=== PATIENT | male | born 1965 | race Caucasian/White ===

== ENCOUNTER 2017-12-22 10:38 | Observation (INO) | payer SELFPAY ==
[~2017-12-22] VITALS: Ht 167.6 cm; Wt 83.1 kg
[2017-12-22] VITALS (20 sets, daily range): BP systolic 136–253; BP diastolic 67–126; PULSE 55–76; RESP 16–24; TEMP 97–97.8; O2SAT 94–99
[2017-12-22] MEDS ORDERED: SODIUM CHLOR 0.9% 1000 ML INJ 1,000 ML IV SCH (10:52)
[2017-12-22] MEDS ORDERED: SODIUM CHLORIDE 0.9% FLUSH 10 ML FLUSH IV FLUSH PRN (11:00)
[2017-12-22] MEDS ORDERED: MORPHINE SULFATE 8 MG/ML INJ IV PUSH ONE ×2 (11:00→13:15)
[2017-12-22 11:18] LABS: BASOPHIL # 0.3 TH/MM3 (0-0.2); EOSINOPHIL # 0.1 TH/MM3 (0-0.4); EOSINOPHIL % 0.8 % (0.0-4.0); HEMATOCRIT 50.9 % (39.0-51.0); HEMOGLOBIN 17.8 GM/DL (13.0-17.0); LYMPH % 17.1 % (9.0-44.0); LYMPHOCYTE # 2.6 TH/MM3 (1.0-4.8); MEAN CORPUSCULAR HEMOGLOBIN 29.8 PG (27.0-34.0); MEAN PLATELET VOLUME 9.1 FL (7.0-11.0); MONOCYTE # 1.1 TH/MM3 (0-0.9); NEUT % 73.1 % (16.0-70.0); PLATELET COUNT 307 TH/MM3 (150-450); RED BLOOD COUNT 5.99 MIL/MM3 (4.50-5.90); RED CELL DISTRIBUTION WIDTH 13.9 % (11.6-17.2); WHITE BLOOD COUNT 15.1 TH/MM3 (4.0-11.0)
--- NOTE | 2017-12-22 11:19 | PD ---
HPI Chief Complaint: Abdominal Pain Time Seen by Provider: 10:52 Travel History International Travel<30 days: No Contact w/Intl Traveler<30days: No Traveled to known affect area: No History of Present Illness HPI 52-year-old male complains of generalized abdominal pain for one day. No nausea vomiting fever or diarrhea. Denies any unusual food. The pain is constant. It's worse with palpation. He reports feels similar to prior episode of diverticulitis. [facility] Social History Tobacco Use: No Allergies-Medications (Allergen,Severity, Reaction): Coded Allergies: No Known Allergies (Unverified , 12/22/17) Reported Meds & Prescriptions Reported Meds & Active Scripts Active Review of Systems Except as stated in HPI: all other systems reviewed are Neg General / Constitutional: No: Fever Physical Exam Narrative GENERAL: 52-year-old male well-nourished well-developed Vital Signs Date Time Temp Pulse Resp B/P (MAP) Pulse Ox O2 Delivery O2 Flow Rate FiO2 12/22/17 10:41 97.6 63 16 253/126 (168) 99 SKIN: Warm and dry. HEAD: Atraumatic. Normocephalic. EYES: Pupils equal and round. No scleral icterus. No injection or drainage. ENT: No nasal bleeding or discharge. Mucous membranes pink and moist. NECK: Trachea midline. No JVD. CARDIOVASCULAR: Regular rate and rhythm. RESPIRATORY: No accessory muscle use. Clear to auscultation. Breath sounds equal bilaterally. GASTROINTESTINAL: Soft. Generalized tenderness present. MUSCULOSKELETAL: Extremities without clubbing, cyanosis, or edema. No obvious deformities. NEUROLOGICAL: Awake and alert. No obvious cranial nerve deficits. Motor grossly within normal limits. Five out of 5 muscle strength in the arms and legs. Normal speech. PSYCHIATRIC: Appropriate mood and affect; insight and judgment normal. Data Data Last Documented VS Vital Signs Date Time Temp Pulse Resp B/P (MAP) Pulse Ox O2 Delivery O2 Flow Rate FiO2 12/22/17 14:40 62 16 203/85 (124) 98 Room Air 12/22/17 10:41 97.6 Orders Orders Complete Blood Count With Diff (12/22/17 10:52) Comprehensive Metabolic Panel (12/22/17 10:52) Lipase (12/22/17 10:52) Ct Abd/Pel W Iv Contrast(Rout) (12/22/17 10:52) Iv Access Insert/Monitor (12/22/17 10:52) Ecg Monitoring (12/22/17 10:52) Oximetry (12/22/17 10:52) Sodium Chlor 0.9% 1000 Ml Inj (Ns 1000 M (12/22/17 10:52) Sodium Chloride 0.9% Flush (Ns Flush) (12/22/17 11:00) Morphine Inj (Morphine Inj) (12/22/17 11:00) Iohexol 350 Inj (Omnipaque 350 Inj) (12/22/17 11:29) Enalaprilat Inj (Vasotec Inj) (12/22/17 12:00) Ciprofloxacin (Cipro) (12/22/17 12:15) Metronidazole (Flagyl) (12/22/17 12:15) Promethazine Inj (Phenergan Inj) (12/22/17 12:30) Morphine Inj (Morphine Inj) (12/22/17 13:15) Clonidine (Catapres) (12/22/17 13:15) Hydralazine Inj (Apresoline Inj) (12/22/17 14:30) Nicardipine Inj (Cardene Inj) (12/22/17 14:45) Admit To Inpatient (12/22/17 ) Vital Signs (Adult) NIKO.Q4H (12/22/17 14:40) Glass Loading Equipment Tender / Telemetry NIKO.Q8H (12/22/17 14:40) Inpatient Certification (12/22/17 ) Complete Blood Count With Diff (12/23/17 06:00) Admit Order (Ed Use Only) (12/22/17 ) Glass Loading Equipment Tender / Telemetry NIKO.Q8H (12/22/17 14:43) Vital Signs (Adult) Q4H (12/22/17 14:43) Diet Heart Healthy (12/22/17 Dinner) Activity Bed Rest (12/22/17 14:43) Labs Laboratory Tests Test 12/22/17 11:00 White Blood Count 15.1 TH/MM3 Red Blood Count 5.99 MIL/MM3 Hemoglobin 17.8 GM/DL Hematocrit 50.9 % Mean Corpuscular Volume 85.0 FL Mean Corpuscular Hemoglobin 29.8 PG Mean Corpuscular Hemoglobin Concent 35.0 % Red Cell Distribution Width 13.9 % Platelet Count 307 TH/MM3 Mean Platelet Volume 9.1 FL Neutrophils (%) (Auto) 73.1 % Lymphocytes (%) (Auto) 17.1 % Monocytes (%) (Auto) 7.0 % Eosinophils (%) (Auto) 0.8 % Basophils (%) (Auto) 2.0 % Neutrophils # (Auto) 11.0 TH/MM3 Lymphocytes # (Auto) 2.6 TH/MM3 Monocytes # (Auto) 1.1 TH/MM3 Eosinophils # (Auto) 0.1 TH/MM3 Basophils # (Auto) 0.3 TH/MM3 CBC Comment DIFF FINAL Differential Comment Blood Urea Nitrogen 10 MG/DL Creatinine 1.00 MG/DL Random Glucose 153 MG/DL Total Protein 7.9 GM/DL Albumin 3.5 GM/DL Calcium Level 8.9 MG/DL Alkaline Phosphatase 90 U/L Aspartate Amino Transf (AST/SGOT) 24 U/L Alanine Aminotransferase (ALT/SGPT) 14 U/L Total Bilirubin 0.3 MG/DL Sodium Level 140 MEQ/L Potassium Level 4.6 MEQ/L Chloride Level 108 MEQ/L Carbon Dioxide Level 26.7 MEQ/L Anion Gap 5 MEQ/L Estimat Glomerular Filtration Rate 78 ML/MIN Lipase 170 U/L MDM Medical Decision Making Medical Screen Exam Complete: Yes Emergency Medical Condition: Yes Medical Record Reviewed: Yes Differential Diagnosis Gastritis, pancreatitis, appendicitis, acute cholecystitis, ascending cholangitis, AAA, perforated viscous, mesenteric ischemia, hepatitis, cystitis, hydronephrosis/hydroureter/nephroureter calculus, mesenteric adenitis, biliary colic Narrative Course CBC & BMP Diagram 12/22/17 11:00 Total Protein 7.9, Albumin 3.5, Calcium Level 8.9, Alkaline Phosphatase 90, Aspartate Amino Transf (AST/SGOT) 24, Alanine Aminotransferase (ALT/SGPT) 14, Total Bilirubin 0.3 CT abdomen and pelvis reveals trace stranding about the sigmoid colon. The presentation is in keeping with a clinical diagnosis of diverticulitis. Cipro Flagyl prescriptions. Tramadol for pain The patient had pretty significant hypertension at 250 systolic. After morphine it decreased to 223 systolic. Vasotec IV ordered. Patient reassessed at about 12:15 AM he complained of the need to urinate. Upon return from the bathroom he was very nauseated and dry heaved. Phenergan ordered. The patient was standing at that point. We'll reassess in about 30 minutes. Persistent hypertension observed. Persistent pain reported. 8 mg morphine added. Clonidine added. Patient reassessed again at 1:40 PM and reports resolution of pain. If blood pressure improves the patient will go home which is also in keeping with his preference. Unfortunately the blood pressure does not drop below 2:15. 10 mg IV hydralazine added. The patient will be admitted for treatment of abdominal infection, presumably the etiology, coupled with hypertensive emergency. Critical Care Narrative Aggregate critical care time was 45 minutes. Time to perform other separately billable procedures was not included in the critical care time. My time did not include minutes spent treating any other patients simultaneously or on activities that did not directly contribute to the patient's treatment. The services I provided to this patient were to treat and/or prevent clinically significant deterioration that could result in: Multiorgan injury due to hypertension I provided critical care services requiring my management, as noted below: Chart data review, documentation time, medication orders and management, vital sign assessments/reviewing monitor data, ordering and reviewing lab tests, ordering and interpreting/reviewing x-rays and diagnostic studies, care of the patient and discussion of the patient with the admitting physicians. Diagnosis Primary Impression: Diverticulitis Additional Impressions: Hypertension Qualified Codes: I10 - Essential (primary) hypertension Nausea & vomiting Qualified Codes: R11.2 - Nausea with vomiting, unspecified Admitting Information Admitting Physician Requests: Percy Glasgow MD Dec 22, 2017 11:19
[2017-12-22 11:25] LABS: CHLORIDE 108 MEQ/L (98-107); SODIUM (NA) 140 MEQ/L (136-145)
[2017-12-22 11:29] LABS: ALBUMIN 3.5 GM/DL (3.4-5.0); BICARBONATE 26.7 MEQ/L (21.0-32.0); CALCIUM 8.9 MG/DL (8.5-10.1); GLUCOSE,RANDOM 153 MG/DL (74-106)
[2017-12-22] MEDS ORDERED: IOHEXOL 350 MG/ML 10 ML VIAL (for RAD DIAG) IVCONTRAST ONE (11:29)
[2017-12-22 11:30] LABS: BLOOD UREA NITROGEN 10 MG/DL (7-18)
[2017-12-22 11:32] LABS: ALT (GPT) 14 U/L (12-78); AST (GOT) 24 U/L (15-37); GLOMERULAR FILTRATION RATE 78 ML/MIN (>89)
[2017-12-22 11:34] LABS: TOTAL BILIRUBIN ADULT 0.3 MG/DL (0.2-1.0); TOTAL PROTEIN 7.9 GM/DL (6.4-8.2)
[2017-12-22 11:35] LABS: ALKALINE PHOSPHATASE 90 U/L (45-117)
--- NOTE | 2017-12-22 11:46 | RADRPT ---
EXAM DATE/TIME: 12/22/2017 11:23 [facility] COMPARISON: No previous studies available for comparison. INDICATIONS : Mid to lower abdominal pain since last night. IV CONTRAST: 95 cc Omnipaque 350 (iohexol) IV ORAL CONTRAST: No oral contrast ingested. RADIATION DOSE: 13.75 CTDIvol (mGy) MEDICAL HISTORY : Diverticulitis. SURGICAL HISTORY : None. ENCOUNTER: Initial ACUITY: 2 days PAIN SCALE: 6/10 LOCATION: pelvis abdomen TECHNIQUE: Volumetric scanning of the abdomen and pelvis was performed. Using automated exposure control and ad justment of the mA and/or kV according to patient size, radiation dose was kept as low as reasonably achievable to obtain optimal diagnostic quality images. DICOM format image data is available electro nically for review and comparison. FINDINGS: Lung bases are clear. The osseous structures are intact. No pleural or pericardial effusions are iden tified. Liver unremarkable. Cholelithiasis is noted. The spleen, pancreas, adrenals and left kidney a re unremarkable. There is a circumscribed simple cyst at the midpole of the right kidney measuring 5. 9 x 5.7 cm. Atherosclerotic plaquing of the aorta without aneurysm. Prostatic calcifications are note d. Urinary bladder unremarkable. There is diverticulosis of the sigmoid colon and the descending colo n without evidence of diverticulitis. The appendix is normal. There is no evidence for adenopathy or aneurysm. CONCLUSION: Right renal cyst. Atherosclerosis. Darrick Minaya MD on December 22, 2017 at 11:42 Board Certified Radiologist. This report was verified electronically.
[2017-12-22] MEDS ORDERED: ENALAPRILAT 1.25 MG/ML VIAL IV PUSH ONE (12:00)
[2017-12-22] MEDS ORDERED: METR-1 PO (12:04)
[2017-12-22] MEDS ORDERED: TRAM50TA PO (12:04)
[2017-12-22] MEDS ORDERED: CIPR-9 PO (12:04)
[2017-12-22] MEDS ORDERED: metroNIDAZOLE 500 MG TAB PO ONE (12:15)
[2017-12-22] MEDS ORDERED: CIPROFLOXACIN 500 MG TAB PO ONE (12:15)
[2017-12-22] MEDS ORDERED: PROMETHAZINE INJ 25 MG/ML VIAL IM ONE (12:30)
[2017-12-22] MEDS ORDERED: cloNIDine HCL 0.1 MG TAB PO ONE (13:15)
[2017-12-22] MEDS ORDERED: PROM25TA10 PO (13:42)
[2017-12-22] MEDS ORDERED: hydrALAZINE HCL 20 MG/ML VIAL IV PUSH ONE (14:30)
[2017-12-22] MEDS ORDERED: niCARdipine INJ 25 MG in SODIUM CHLOR 0.9% 250 ML INJ 240 ML IV ONE (14:45)
--- NOTE | 2017-12-22 15:27 | HHI.HP ---
HPI Service [facility] Primary Care Physician No Primary Care Physician Admission Diagnosis Diverticulitis; HTN Diagnoses: Chief Complaint: Abdominal pain Travel History International Travel<30 Days: No Contact w/Intl Traveler <30 Da: No Traveled to Known Affected Are: No History of Present Illness 52-year-old white male admitted for hypertensive urgency and diverticulitis Patient was in his usual state of health until earlier this morning when he began experiencing diffuse abdominal pain. Pain was sharp and at its worst intensity was 10/10. Patient did have some nausea no vomiting, no diarrhea. Denies any fevers or chills. Did not take any medicines to help his pain. No alleviating or exacerbating factors reported. Does not take any daily medicines at home. Emergency department patient had a CT abdomen done which on my independent review shows mild to moderate constipation along with some mild intestinal stranding. Patient's blood pressures were noted to be 250 systolic upon entering. Pressures still remained greater than 200 systolic at the end of ED MD evaluation despite aggressive antihypertensives. White count was noted to be 15 K. 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 EYES: No scleral icterus. No injection or drainage. ENT: No nasal bleeding or discharge. Mucous membranes pink and moist. CARDIOVASCULAR: Regular rate and rhythm. no murmurs RESPIRATORY: No accessory muscle use. Clear to auscultation. Breath sounds equal bilaterally. GASTROINTESTINAL: Abdomen soft, nondistended, diffuse mild to moderate tenderness to palpation Extremities: No clubbing, cyanosis, or edema. No obvious deformities. MUSCULOSKELETAL: adequate muscle bulk and tone for age and habitus NEUROLOGICAL: Awake and alert. No obvious cranial nerve deficits. No facial droop nor slurred speech noted. PSYCHIATRIC: Appropriate mood and affect; insight and judgment normal. Laboratory Laboratory Tests Test 12/22/17 11:00 White Blood Count 15.1 Red Blood Count 5.99 Hemoglobin 17.8 Hematocrit 50.9 Mean Corpuscular Volume 85.0 Mean Corpuscular Hemoglobin 29.8 Mean Corpuscular Hemoglobin Concent 35.0 Red Cell Distribution Width 13.9 Platelet Count 307 Mean Platelet Volume 9.1 Neutrophils (%) (Auto) 73.1 Lymphocytes (%) (Auto) 17.1 Monocytes (%) (Auto) 7.0 Eosinophils (%) (Auto) 0.8 Basophils (%) (Auto) 2.0 Neutrophils # (Auto) 11.0 Lymphocytes # (Auto) 2.6 Monocytes # (Auto) 1.1 Eosinophils # (Auto) 0.1 Basophils # (Auto) 0.3 CBC Comment DIFF FINAL Differential Comment Blood Urea Nitrogen 10 Creatinine 1.00 Random Glucose 153 Total Protein 7.9 Albumin 3.5 Calcium Level 8.9 Alkaline Phosphatase 90 Aspartate Amino Transf (AST/SGOT) 24 Alanine Aminotransferase (ALT/SGPT) 14 Total Bilirubin 0.3 Sodium Level 140 Potassium Level 4.6 Chloride Level 108 Carbon Dioxide Level 26.7 Anion Gap 5 Estimat Glomerular Filtration Rate 78 Lipase 170 Result Diagram: 12/22/17 1100 12/22/17 1100 Imaging Last Impressions Abdomen/Pelvis CT 12/22/17 1052 Signed Impressions: Service Date/Time: Friday, December 22, 2017 11:23 - CONCLUSION: Right renal cyst. Atherosclerosis. MD Jonny Fuller VTE Risk Assessment Caprini VTE Risk Assessment: No/Low Risk (score <= 1) Caprini Risk Assessment Model Point Value = 1 Point Value = 2 Point Value = 3 Point Value = 5 Age 41-60 Minor surgery BMI > 25 kg/m2 Swollen legs Varicose veins or History of unexplained or recurrent spontaneous Oral contraceptives or hormone replacement Sepsis (< 1 month) Serious lung disease, including pneumonia (< 1 month) Abnormal pulmonary function Acute myocardial infarction Congestive heart failure (< 1 month) History of inflammatory bowel disease Medical patient at bed rest Age 61-74 Arthroscopic surgery Major open surgery (> 45 min) Laparoscopic surgery (> 45 min) Malignancy Confined to bed (> 72 hours) Immobilizing plaster cast Central venous access Age >= 75 History of VTE Family history of VTE Factor V Leiden Prothrombin [id number] Lupus anticoagulant Anticardiolipin antibodies Elevated serum homocysteine Heparin-induced thrombocytopenia Other congenital or acquired thrombophilia Stroke (< 1 month) Elective arthroplasty Hip, pelvis, or leg fracture Acute spinal cord injury (< 1 month) Prophylaxis Regimen Total Risk Factor Score Risk Level Prophylaxis Regimen 0-1 Low Early ambulation 2 Moderate Order ONE of the following: *Sequential Compression Device (SCD) *Heparin 5000 units SQ BID 3-4 Higher Order ONE of the following medications: *Heparin 5000 units SQ TID *Enoxaparin/Lovenox 40 mg SQ daily (WT < 150 kg, CrCl > 30 mL/min) *Enoxaparin/Lovenox 30 mg SQ daily (WT < 150 kg, CrCl > 10-29 mL/min) *Enoxaparin/Lovenox 30 mg SQ BID (WT < 150 kg, CrCl > 30 mL/min) AND/OR *Sequential Compression Device (SCD) 5 or more Highest Order ONE of the following medications: *Heparin 5000 units SQ TID (Preferred with Epidurals) *Enoxaparin/Lovenox 40 mg SQ daily (WT < 150 kg, CrCl > 30 mL/min) *Enoxaparin/Lovenox 30 mg SQ daily (WT < 150 kg, CrCl > 10-29 mL/min) *Enoxaparin/Lovenox 30 mg SQ BID (WT < 150 kg, CrCl > 30 mL/min) AND *Sequential Compression Device (SCD) Assessment and Plan Assessment and Plan 52-year-old white male being admitted for hypertensive urgency and diverticulitis Hypertensive urgency -Requiring multiple aggressive antihypertensives, starting nicardipine drip, will start oral lisinopril, holding off on beta-blockers secondary to borderline low heart rate Diverticulitis -Continue Cipro and Flagyl -Clear liquid diet -MiraLAX ETOH use - ciwa w/ librium taper Right renal simple cyst -Monitor, should secure outpatient urology/nephrology follow-up SCDs Physician Certification 2 Midnight Certification Type: Admission for Inpatient Services Order for Inpatient Services The services are ordered in accordance with Medicare regulations or non- Medicare payer requirements, as applicable. In the case of services not specified as inpatient-only, they are appropriately provided as inpatient services in accordance with the 2-midnight benchmark. Estimated LOS (days): 2 2 days is the estimated time the patient will need to remain in the hospital, assuming treatment plan goals are met and no additional complications. Post-Hospital Plan: Home Jose Curiel MD Dec 22, 2017 15:27
[2017-12-22] MEDS ORDERED: LISINOPRIL 5 MG TAB PO ONE (15:30)
[2017-12-22] MEDS ORDERED: LORazepam 2 MG/ML VIAL IV PUSH PRN ×4 (15:45)
[2017-12-22] MEDS ORDERED: FLUMAZENIL 0.5 MG/5 ML VIAL IV PUSH PRN (15:45)
[2017-12-22] MEDS ORDERED: LORazepam 2 MG TAB PO PRN (15:45)
[2017-12-22] MEDS ORDERED: LORazepam 1 MG TAB PO PRN (15:45)
[2017-12-22] MEDS ORDERED: POLYETHYLENE GLYCOL 17 GM PKG PO ONE (15:45)
[2017-12-22] MEDS: SODIUM CHLOR 0.9% 1000 ML INJ 1,000 ML IV SCH (18:04)
[2017-12-22] MEDS: metroNIDAZOLE 500 MG INJ 100 ML IV SCH ×2 (18:04→22:53)
[2017-12-22] MEDS: CIPROFLOXACIN 400 MG PREMIX 200 ML IV SCH (21:05)
[2017-12-22] MEDS ORDERED: cloNIDine HCL 0.1 MG TAB PO PRN (22:15)
[2017-12-23] VITALS: BP 140/81; PULSE 60; RESP 20; TEMP 99.4; O2SAT 94
[2017-12-23] MEDS: SODIUM CHLOR 0.9% 1000 ML INJ 1,000 ML IV SCH (03:55)
[2017-12-23 03:58] VITALS: BP 142/80; PULSE 60; RESP 20; TEMP 99.2
[2017-12-23 04:00] VITALS: PULSE 58
[2017-12-23] MEDS: metroNIDAZOLE 500 MG INJ 100 ML IV SCH ×2 (04:16→10:58)
[2017-12-23 04:57] LABS: AUTOMATED NEUTROPHIL # 11.1 TH/MM3 (1.8-7.7); BASOPHIL # 0.1 TH/MM3 (0-0.2); BASOPHIL % 0.5 % (0.0-2.0); EOSINOPHIL # 0.1 TH/MM3 (0-0.4); EOSINOPHIL % 0.9 % (0.0-4.0); HEMATOCRIT 48.6 % (39.0-51.0); HEMOGLOBIN 16.1 GM/DL (13.0-17.0); LYMPHOCYTE # 2.9 TH/MM3 (1.0-4.8); MEAN CORPUSCULAR HEMOGLOBIN 28.2 PG (27.0-34.0); MEAN CORPUSCULAR HGB CONC 33.2 % (32.0-36.0); MEAN PLATELET VOLUME 8.7 FL (7.0-11.0); MONOCYTE # 1.1 TH/MM3 (0-0.9); NEUT % 72.6 % (16.0-70.0); PLATELET COUNT 277 TH/MM3 (150-450); RED BLOOD COUNT 5.71 MIL/MM3 (4.50-5.90); RED CELL DISTRIBUTION WIDTH 12.9 % (11.6-17.2); WHITE BLOOD COUNT 15.3 TH/MM3 (4.0-11.0)
[2017-12-23 08:00] VITALS: PULSE 54
[2017-12-23] MEDS ORDERED: LISINOPRIL 5 MG TAB PO SCH (09:00)
[2017-12-23] MEDS ORDERED: POLYETHYLENE GLYCOL 17 GM PKG PO SCH (09:00)
[2017-12-23] MEDS: CIPROFLOXACIN 400 MG PREMIX 200 ML IV SCH (10:58)
[2017-12-23 11:43] VITALS: BP 147/76; PULSE 56; RESP 16; TEMP 98.7; O2SAT 94
[2017-12-23] MEDS ORDERED: LISI-519 PO (14:14)
[2017-12-23] MEDS ORDERED: CIPR500T2 PO (14:14)
[2017-12-23] MEDS ORDERED: METR1TAB76 PO (14:14)
--- NOTE | 2017-12-23 14:15 | HHI.DCPOC ---
Discharge Care Plan Diagnosis: (1) Diverticulitis (2) Nausea & vomiting (3) Hypertension (4) Hypertensive urgency Goals to Promote Your Health * To prevent worsening of your condition and complications * To maintain your health at the optimal level Directions to Meet Your Goals Take your medications as prescribed Follow your dietary instruction Follow activity as directed Keep your appointments as scheduled Take your immunizations and boosters as scheduled If your symptoms worsen call your PCP, if no PCP go to Urgent Care Center or Emergency Room Smoking is Dangerous to Your Health. Avoid second hand smoke Call the 24-hour hour crisis hotline for domestic abuse at Jose Curiel MD Dec 23, 2017 14:15
--- NOTE | 2017-12-23 14:17 | HHI.PR ---
Subjective Remarks Nursing denies any deterioration since last night. Patient says his pain is much improved. Tolerating p.o. intake well. Afebrile. Objective Vital Signs Date Time Temp Pulse Resp B/P (MAP) Pulse Ox O2 Delivery O2 Flow Rate FiO2 12/23/17 11:43 98.7 56 16 147/76 (99) 94 12/23/17 08:00 54 12/23/17 04:00 58 12/23/17 03:58 99.2 60 20 142/80 (100) 12/23/17 00:00 60 12/23/17 00:00 99.4 60 20 140/81 (100) 94 12/23/17 00:00 60 12/22/17 20:02 97.8 66 23 158/86 (110) 94 12/22/17 20:00 70 12/22/17 20:00 70 12/22/17 19:15 70 12/22/17 19:02 76 12/22/17 18:45 74 12/22/17 18:38 66 12/22/17 18:10 66 22 150/84 (106) 12/22/17 18:05 70 24 136/86 (103) 12/22/17 18:01 97.0 68 22 159/86 (110) 12/22/17 18:00 66 12/22/17 17:38 67 16 154/67 (96) 94 12/22/17 17:11 69 16 145/72 (96) 95 Room Air 12/22/17 16:45 72 16 177/78 (111) 97 Room Air 12/22/17 16:07 60 176/87 12/22/17 15:46 58 16 176/87 (116) 97 Room Air 12/22/17 14:40 62 16 203/85 (124) 98 Room Air 12/22/17 14:21 16 I/O 12/22/17 12/22/17 12/22/17 12/23/17 12/23/17 12/23/17 07:00 15:00 23:00 07:00 15:00 23:00 Intake Total 1000 ml 620 ml 1370 ml Output Total 1000 ml Balance 1000 ml 620 ml 370 ml Intake Oral 320 ml IV Total 1000 ml 300 ml 1370 ml Output Urine Total 1000 ml Result Diagram: 12/23/17 0408 12/22/17 1100 Objective Remarks No abdominal tenderness noted today on palpation, abdomen soft, nondistended A/P Assessment and Plan Diverticulitis -Clinically improved. Will transition patient to p.o. ciprofloxacin and metronidazole upon discharge. Clear liquid diet tonight, patient counseled to gently advance diet as tolerated over the next 2 days. Hypertensive urgency -Patient counseled on the importance of good blood pressure control as outpatient, will be discharged on lisinopril. Patient has met maximal benefit from hospitalization is clinically stable for discharge. Jose Curiel MD Dec 23, 2017 14:17
--- NOTE | 2017-12-23 21:19 | EKG ---
Date Performed: 12/22/2017 Time Performed: 15:46:07 PTAGE: 52 years EKG: SINUS BRADYCARDIA POSSIBLE RIGHT VENTRICULAR CONDUCTION DELAY BORDERLINE ECG NO PREVIOUS TRACING DOCTOR: Shashank Barger Interpretating Date/Time 12/23/2017 21:18:48
== END 2017-12-23 14:44 | disposition home or self-care (01) ==
LOC: PHED 10:38 → PHEDA 17:05 → PHICU 17:52 → PH3B 12-23 10:45
PROVIDERS: ADMIT Hospitalist; ATTEND Hospitalist
DX: I16.1 Hypertensive emergency (principal); K57.92 Diverticulitis of intestine, part unspecified, without perforation or abscess without bleeding; R11.2 Nausea with vomiting, unspecified; I10 Essential (primary) hypertension; N28.1 Cyst of kidney, acquired; K59.00 Constipation, unspecified; R00.1 Bradycardia, unspecified; F17.200 Nicotine dependence, unspecified, uncomplicated
CPT/HCPCS: 74177; 80053; 83690; 85025; 93005; 96361; 96365; 96366; 96368; 96372; 96375; 96376; 99291; G0378; J0360; J0744; J2270; J2550; J7030; J7050; Q9967

== ENCOUNTER 2018-01-02 00:43 | Inpatient (IN) | payer SELFPAY ==
[~2018-01-02] VITALS: Ht 167.6 cm; Wt 86.5 kg
[2018-01-02] VITALS (14 sets, daily range): BP systolic 94–152; BP diastolic 65–82; PULSE 50–138; RESP 14–18; TEMP 98.1–99.9; O2SAT 92–98
[~2018-01-02 00:43] MED LIST: CIPR500T2 PO; LISI-519 PO; METR1TAB76 PO
[2018-01-02] MEDS ORDERED: NITROGLYCERIN 0.4 MG SL 25 TABS/BTL SL ONE ×2 (01:00)
[2018-01-02] MEDS ORDERED: NITROGLYCERIN 2% OINT 1 GM PACKET TOPICAL ONE (01:00)
[2018-01-02] MEDS ORDERED: HEPARIN SODIUM - IV 10,000 UNITS/10 ML VIAL IV ONE ×3 (01:00→01:15)
[2018-01-02] MEDS ORDERED: ASPIRIN 81 MG CHEW TAB CHEW ONE (01:00)
[2018-01-02] MEDS ORDERED: HEPARIN-D5W 25,000 U/250 ML 250 ML IV PRN ×2 (01:00→01:15)
[2018-01-02] MEDS ORDERED: NITROGLYCERIN-D5W 50 MG/250 ML 250 ML ONE (01:01)
--- NOTE | 2018-01-02 01:01 | PD ---
HPI Chief Complaint: STEMI Alert Time Seen by Provider: 00:50 Travel History International Travel<30 days: No Contact w/Intl Traveler<30days: No Traveled to known affect area: No History of Present Illness HPI Patient is a 52-year-old male who is a history of hypertension he recently was in our hospital for uncontrolled hypertension was discharged on meds and his BP was controlled , . he has been home for a 10 days. Tonight sudden onset left-sided chest pain started 2 hours prior to arrival he comes to our ER on his own. He drives to the triage is brought immediately back to the room. His immediate EKG shows an inferior lead STEMI with reciprocal depressions in lateral leads. Patient is immediately prepared for the Communicable Disease Specialist. He describes the pain as constant pressure left chest and up to neck , Nothing alleviates it , He took 81mg ASA no relief of CP , His BP is very elevated again tonight on arrival and I immediately give him 2 SL nitro and 1 inch notro paste to chest and 324 chewable ASA. 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 Pt transferred to [facility] within 30 minutes of arrival to [facility] Past Medical History Diverticulitis: Yes Gastrointestinal Disorders: Yes (DIVERTICULITIS) Tetanus Vaccination: < 5 Years Influenza Vaccination: No Past Surgical History Tonsillectomy: Yes (AND ADENOIDS) Social History Alcohol Use: Yes (daily) Tobacco Use: No Substance Use: No Allergies-Medications (Allergen,Severity, Reaction): Uncoded Allergies: AICD , No MRI (Adverse Reaction, Unknown, 01/03/18) Reported Meds & Prescriptions Reported Meds & Active Scripts Active Review of Systems Except as stated in HPI: all other systems reviewed are Neg Cardiovascular: Positive: Chest Pain or Discomfort Skin: Positive Other (sweaty) Physical Exam Narrative GENERAL: appears concerned and reports 8/10 CP not diaphoretic no vomit. SKIN: Warm and dry. HEAD: Atraumatic. Normocephalic. EYES: Pupils equal and round. No scleral icterus. No injection or drainage. ENT: No nasal bleeding or discharge. Mucous membranes pink and moist. NECK: Trachea midline. No JVD. CARDIOVASCULAR: Regular rate and rhythm. HR 88 and 201 /114 nitro given immediately RESPIRATORY: No accessory muscle use. Clear to auscultation. Breath sounds equal bilaterally. GASTROINTESTINAL: Abdomen soft, non-tender, nondistended. Hepatic and splenic margins not palpable. MUSCULOSKELETAL: Extremities without clubbing, cyanosis, or edema. No obvious deformities. NEUROLOGICAL: Awake and alert. No obvious cranial nerve deficits. Motor grossly within normal limits. Five out of 5 muscle strength in the arms and legs. Normal speech. PSYCHIATRIC: Appropriate mood and affect; insight and judgment normal. Data Data Orders Orders Nitroglycerin 2% Oint (Nitroglycerin 2% (01/02/18 01:00) Nitroglycerin Sl (Nitrostat Sl) (01/02/18 01:00) Nitroglycerin Sl (Nitrostat Sl) (01/02/18 01:00) Heparin Inj (Heparin Inj) (01/02/18 01:00) Heparin-D5w 25,000 U/250 Ml (Heparin-D5w (01/02/18 01:00) Act Partial Throm Time (Ptt) (01/02/18 00:52) Prothrombin Time / Inr (Pt) (01/02/18 00:52) Act Partial Throm Time (Ptt) (01/02/18 07:52) Aspirin Chew (Aspirin Chew) (01/02/18 01:00) Admit Order (Ed Use Only) (01/02/18 00:55) MDM Medical Decision Making Medical Screen Exam Complete: Yes Emergency Medical Condition: Yes Medical Record Reviewed: Yes Differential Diagnosis This pain due to ischemic cardiac artery disease versus pericarditis versus gastritis versus costochondritis versus Narrative Course pt has EKG immediately on arrival and 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 brock is notified he calls back immediately I give the patient 2 baby aspirin as he took 2 aspirin today I gave him 5000 units of heparin bolus nitro 2 sublingual to get his blood pressure down the Nitropaste and a nitro drip starting at 10 mics a minute patient is given 2 mg IV of morphine for vasodilation and he is transferred immediately on a nitro drip to the Communicable Disease Specialist at the Main Critical Care Narrative 30 minutes CC time Diagnosis Primary Impression: STEMI (ST elevation myocardial infarction) Qualified Codes: I21.3 - ST elevation (STEMI) myocardial infarction of unspecified site Admitting Information Admitting Physician Requests: Admit Scripts Lisinopril (Lisinopril) 5 Mg Tab 5 MG PO DAILY for Blood Pressure Management, #30 TAB 0 Refills Prov: Kain Anthony MD 01/03/18 Aspirin (Tgt Aspirin) 81 Mg Chw 81 MG PO DAILY for Blood Clot Prevention for 30 Days, EA Prov: Kain Anthony MD 01/03/18 Carvedilol (Coreg) 3.125 Mg Tab 6.25 MG PO BID for heart for 30 Days, #120 TAB Prov: Kain Anthony MD 01/03/18 Atorvastatin (Atorvastatin) 40 Mg Tab 80 MG PO HS for Cholesterol Management for 30 Days, TAB Prov: Kain Anthony MD 01/03/18 Clopidogrel (Plavix) 75 Mg Tab 75 MG PO DAILY for Blood Clot Prevention for 30 Days, #30 TAB Prov: Kain Anthony MD 01/03/18 Rene Mobley MD January 02, 2018 01:01
[2018-01-02] MEDS: NITROGLYCERIN-D5W 50 MG/250 ML 250 ML IV PRN ×2 (01:13→01:23)
[2018-01-02 01:14] LABS: AUTOMATED NEUTROPHIL # 9.7 TH/MM3 (1.8-7.7); BASOPHIL # 0.3 TH/MM3 (0-0.2); EOSINOPHIL # 0.3 TH/MM3 (0-0.4); EOSINOPHIL % 1.9 % (0.0-4.0); HEMATOCRIT 51.2 % (39.0-51.0); HEMOGLOBIN 17.7 GM/DL (13.0-17.0); LYMPH % 29.2 % (9.0-44.0); LYMPHOCYTE # 4.9 TH/MM3 (1.0-4.8); MEAN CELL VOLUME 84.5 FL (80.0-100.0); MEAN CORPUSCULAR HEMOGLOBIN 29.2 PG (27.0-34.0); MEAN CORPUSCULAR HGB CONC 34.5 % (32.0-36.0); MEAN PLATELET VOLUME 8.8 FL (7.0-11.0); MONO % 9.2 % (0.0-8.0); MONOCYTE # 1.5 TH/MM3 (0-0.9); NEUT % 57.7 % (16.0-70.0); PLATELET COUNT 399 TH/MM3 (150-450); RED BLOOD COUNT 6.05 MIL/MM3 (4.50-5.90); RED CELL DISTRIBUTION WIDTH 13.6 % (11.6-17.2); WHITE BLOOD COUNT 16.7 TH/MM3 (4.0-11.0)
[2018-01-02] MEDS ORDERED: MORPHINE SULFATE 4 MG/ML INJ IV PUSH ONE (01:15)
[2018-01-02] MEDS ORDERED: MORPHINE SULFATE 2 MG/ML SYRINGE IV PUSH ONE (01:15)
[2018-01-02 01:22] LABS: CHLORIDE 107 MEQ/L (98-107); SODIUM (NA) 140 MEQ/L (136-145)
[2018-01-02 01:26] LABS: INTERNATIONAL NORMALIZED RATIO 1.1 RATIO; PROTHROMBIN TIME - PATIENT 10.7 SEC (9.8-11.6)
[2018-01-02 01:27] LABS: ALBUMIN 3.5 GM/DL (3.4-5.0); BICARBONATE 25.5 MEQ/L (21.0-32.0); BLOOD UREA NITROGEN 9 MG/DL (7-18); CALCIUM 9.2 MG/DL (8.5-10.1); GLUCOSE,RANDOM 125 MG/DL (74-106)
[2018-01-02 01:30] LABS: ALT (GPT) 18 U/L (12-78); AST (GOT) 14 U/L (15-37); CREATININE 0.98 MG/DL (0.60-1.30); GLOMERULAR FILTRATION RATE 80 ML/MIN (>89)
[2018-01-02 01:31] LABS: TOTAL BILIRUBIN ADULT 0.3 MG/DL (0.2-1.0); TOTAL PROTEIN 7.6 GM/DL (6.4-8.2)
[2018-01-02 01:32] LABS: ALKALINE PHOSPHATASE 84 U/L (45-117); TROPONIN I 0.02 NG/ML (0.02-0.05)
[2018-01-02] MEDS ORDERED: HEPARIN-NS/PF FLUSH BAG 2,000 ML IV FLUSH ONE (01:43)
[2018-01-02] MEDS ORDERED: MIDAZOLAM HCL 5 MG/5 ML VIAL ONE (01:44)
[2018-01-02] MEDS ORDERED: HEPARIN SODIUM - IV 10,000 UNITS/10 ML VIAL ONE (01:44)
[2018-01-02] MEDS ORDERED: ATROPINE SULFATE 1 MG/10 ML SYRINGE ONE (02:41)
[2018-01-02] MEDS ORDERED: CLOPIDOGREL 300 MG TAB ONE (02:41)
[2018-01-02] MEDS ORDERED: SODIUM CHLOR 0.9% 1000 ML INJ 1,000 ML IV SCH (02:46)
--- NOTE | 2018-01-02 02:51 | CATHPROC ---
[facility] HIS Report Study Information Study Number Admission Scheduled Start Study Start 122 Jan 02 2018 12:57AM 01/02/2018 Jan 02 2018 1:30AM [facility] Cardiac Catheterization Admit Source Facility Department Emergency department [facility] Pediatric Rn Physician and Clinical Staff Initial Oscar Abrams Bdr Adriel Gill,RN Bdr Radha Levi ,RT(R) Recorder Keith Avilez,RT(R) ScrFlora Jaeger,RT(R) Procedures Performed Procedure Location (Site) Vessel Name Angiogram LV LV Ventricle Coronary Angiograms LCA Left Coronary Coronary Angiograms RCA Right Coronary L Heart Cath PTCA RCA Mid Right Coronary Stent RCA Mid Right Coronary Wire insertion Fem Art (right) Femoral Art Equipment Time Financial Systems Manager Description Size Mfg Part Number Used/Scraped TRANSDUCER, FABRICIO [id number] 01:34 YOUNG PATTERSON * Used W/STOCKCOCK *[id number] *[id number] *[id number] *[id number] 02:33 DAIG/[employer] ANGIOSEAL, FR6 VIP FR 6 Used *[id number] 01:34 [employer] INDUSTRIES PACK, CCL CUSTOM * Used *[id number] 01:34 [employer] PACER PEN, SKIN DUAL W/ RULER * Used *[id number] 02:16 MEDTRONIC BALLOON, 2.0 X 15MM EUPHORA 15MM Used *[id number] EXPORTAP 02:08 MEDTRONIC CATHETER, EXPORT ASPIRATON Used *[id number] 02:20 MEDTRONIC STENT, 3.0 30 INTEGRITY 3.0 30 Used *[id number] 02:21 MEDTR[employer]IC STENT, 3.0 30 INTEGRITY 3.0 30 Used *[id number] 02:27 MEDTRONIC STENT, 3.5 18 INTEGRITY 3.5 18 Used *[id number] 02:16 [employer] MEDICAL 30 JULIA INDEFLATOR Used *[id number] 02:07 [employer] MEDICAL SHEATH, FR6.5 PRELUDE 11CM FR 6.5 038ACT Used *[id number] 01:34 [employer] WIRE, 3MMJ .035 180CM 180CM Used *[id number] PROBE COVER, STERILE [id number] 01:34 [employer] * Used ULTRASOUND W/ GEL *[id number] 01:34 NAMIC MANIFOLD, 4 PORT * Used *[id number] 01:34 NAMIC TUBING, HIGH PRESSURE 48" 48" Used *[id number] 01:34 [employer] OMNIPAQUE, 350 MG, 150ML 150ML [id number] Used 02:32 [employer] OMNIPAQUE, 350 MG, 50ML 50ML [id number] Used [id number] 01:34 [place] [employer],WARM AIR CCL * Used *[id number] 01:34 [employer] MEDICAL SHEATH, FR5 TERUMO (10CM) FR 5 Used *[id number] WIRE, RUNTHROUGH NS FLOPPY [id number] 02:01 TERUMO MEDICAL 180CM Used .014 180CM *[id number] Equipment Model, Serial, Lot Number and Expiration Data Description Model Number Serial Number Lot Number Expiration Date ANGIOSEAL, FR6 VIP [id number] 08-25-2018 STENT, 3.0 30 INTEGRITY [id number] 04-11-2019 STENT, 3.0 30 INTEGRITY [id number] 04-11-2019 STENT, 3.5 18 INTEGRITY [id number] 05-03-2019 History: Current Medications Medication Dosage/Unit Route Frequency Last Date/Time Taken ASA History: Allergies Allergy Reaction No Known Allergies History: Risk Factors Family History of Hypertension Dyslipidemia Previous FL Previous Heart Failure Premature CAD Yes No Yes No No Prior Valve Prior PCI Prior CABG Surgery No No No Cerebrovascular Peripheral Artery Chronic Lung On Dialysis Diabetes Disease Disease Disease No No No No No History: Risk Factors Selection Items Current Smoker History: Symptoms/Diagnosis Selection Items Chest pain History: Stress Tests Stress or Imaging Studies Performed No History: Other Disease Selection Items HTN History: Other Current Smoker Method Packs a Day Years Used Pack Years Yes Cigarettes 2 25 50 Labs Hgb (g/dl) Hct (%) RBC (MIL/MM3) WBC (l/cumm) Platelets (thousands) 11.60-17.00 35.00-51.00 4.00-5.90 4.00-11.00 150.00-450.00 17.7 51.2 6 16.7 399 Glucose (mg/dl) BUN (mg/dl) Creatinine (mg/dl) BUN:Creatinine (1:x) 74.00-106.00 7.00-18.00 0.50-1.30 10.00-20.00 125 9 0.9 10 Na (meq/l) K (meq/l) Cl (meq/l) CO2 (mmol/L) Ca (mg/dl) 136.00-145.00 3.50-5.10 98.00-107.00 21.00-32.00 8.50-10.10 140 3.9 107 25.5 9.2 PT (sec) PTT (sec) INR (PTT:PT) 9.80-11.60 24.30-30.10 0.90-1.10 10.7 25.6 1.1 Troponin I (ng/ml) CPK (u/l) CPK-MB (ng/ML) 0.02-0.05 26.00-308.00 0.50-3.60 0.02 79 Not Drawn Medication Medication Total Dose (Bolus/Oral) Medication Total Dosage/Unit 1% XYLOCAINE 20 mL ATROPINE 0.5 mg FENTANYL 25 mcg HEPARIN 8000 units NTG (IC) 100 mcg PLAVIX 600 mg VERSED 2 mg Medications (Bolus/Oral) Medication Time Given Dosage/Unit Administered By Reason 1% XYLOCAINE 01/02/2018 1:57:54 AM 20 mL Oscar Farrar 20 mL 1% XYLOCAINE given in lab by Oscar Farrar in Right Groin via Subcutaneous. VERSED 01/02/2018 1:58:18 AM 2 mg Adriel Gill 2 mg VERSED given in lab by Adriel Gill RN in Left Forearm via Peripheral IV. FENTANYL 01/02/2018 1:58:28 AM 25 mcg Adriel Gill 25 mcg FENTANYL given in lab by Adriel Gill RN in Left Forearm via Peripheral IV. HEPARIN 01/02/2018 2:07:33 AM 8000 units Adriel Gill 8000 units HEPARIN given in lab by Adriel Gill RN in Left Forearm via Peripheral IV. ATROPINE 01/02/2018 2:13:47 AM 0.5 mg Adriel Gill 0.5 mg ATROPINE given in lab by Adriel Gill RN in Left Forearm via Peripheral IV. NTG (IC) 01/02/2018 2:16:59 AM 100 mcg Oscar Farrar 100 mcg NTG (IC) given in lab by Oscar Farrar via Intra-coronary. PLAVIX 01/02/2018 2:44:24 AM 600 mg Adriel Gill 600 mg PLAVIX given in lab by Adriel Gill, RN via Oral. Medication (Drip) Medication Time Given Dosage/Unit Concentration/Unit Diluent (ml) Solutio n IV Solutions 01/02/2018 1:47:27 AM 0 mL (IV) 500 NaCl .9 IV Solutions given in lab by Adriel Gill, RN in Left Forearm via Peripheral IV. Pump/Drip Flow = 2 0 ml/hr using NaCl .9. Initial Case Assessment Cardiovascular Rhythm NIBP Chest Pain Irregular 156/103 6 Edema Present Skin color Skin None Normal Warm Dry Circulatory - Right Pulses Dorsalis Pedis Femoral 1 2 Scale (0,1,2,3,4,d) Circulatory - Left Pulses Dorsalis Pedis Femoral 1 2 Scale (0,1,2,3,4,d) Neurological State Oriented to time-place- Alert Moves all extremities person Respiration - General Respiration Rate SpO2 (%) O2 (lpm) (B/min) 21 97 0 Final Case Assessment Cardiovascular HR Rhythm NIBP 67 Irregular 102/66 Edema Present Skin color Skin None Normal Warm Dry Circulatory - Right Pulses Dorsalis Pedis Femoral 1 2 Scale (0,1,2,3,4,d) Circulatory - Left Pulses Dorsalis Pedis Femoral 1 2 Scale (0,1,2,3,4,d) Neurological State Oriented to time-place- Alert Moves all extremities person Respiration - General Respiration Rate SpO2 (%) O2 (lpm) (B/min) 13 97 2 Chronological Log Time Study Chronological Log 1:35:18 MD arrived. 1:36:25 Patient arrived via Bed. Vitals capture started with the following parameters, Patient=Adult, Interval=5 min, Initial Pr afeaae=685 mmHg, 1:45:46 Deflation Rate=5 mmHg, Cuff placed on Left Arm 1:46:26 HR=80 bpm, OFDD=900/103 mmhg, SpO2=97.0 %, Resp=21 B/min, Pain=6, Johnathon=10, Posey=2 1:46:34 Patient Name, D.O.B, / Armband Verified By MacieN. 1:46:34 Consent signed by the physician and the patient and verified by the Pediatric Rn staff. 1:46:35 Pre-op and post- op instructions given; patient acknowledges understanding of instructions. 1:46:36 Verbal Stimulation=2 Physical Stimulation=2 Airway=2 Respiration=2 TOTAL=8. (0=absent, 1=li mited, 2=present) 1:46:38 Presedation assessment performed by Pediatric Rn RN. 1:46:41 Immediate Presedation assesment performed by physician. 1:46:42 Patient has been NPO for Less than 6Hrs. 1:46:46 Skin Breakdown- none per patient. 1:46:48 Patient Warmer Placed on the Table. 1:46:50 Disposable Defibrillator Pads Placed On Patient. 1:46:55 Sunita Prominences Protected 1:47:02 A # 18 IV was noted in the Antecubital (left). Grade = 0 IV Solutions given in lab by Adriel Gill RN in Left Forearm via Peripheral IV. Pump/Drip Henry w = 20 ml/hr using NaCl 1:47:27 .9. 1:47:28 History and physical on the chart or being dictated. Assessment: Initial Case, Rhythm=Irregular, TKNY=340/103 mmhg, Chest Pain=6, Edema=None, Color=N ormal, Skin = Warm, Dry Right Pulses: Manolo Ped=1, Femoral=2 1:47:29 Left Pulses: Manolo Ped=1, Femoral=2 Neurological: State=Alert, Ox3, CELESTE Respiration: Resp=21 B/min, SpO2=97 %, O2=0 lpm 1:50:00 Reference ECG taken 1:50:11 Bilateral groins prepped with 2% chlorhexidine, and draped after a 3 minute waiting time. 1:51:28 HR=78 bpm, GAIV=275/94 mmhg, SpO2=97.0 %, Resp=17 B/min, Pain=6, Johnathon=10, Posey=2 1:53:26 Pressure channel 1 zeroed. 1:56:29 HR=80 bpm, RSKJ=453/98 mmhg, NvI8=560.0 %, Resp=21 B/min, Pain=6, Johnathon=10, Posey=2 Time Out. Correct patient, correct procedure, correct physician, power injector not loaded with contrast with surgical 1:57:31 team present. Time Out Concurred by MD and individual staff in procedure. 1:57:38 Case Start 1:57:54 20 mL 1% XYLOCAINE given in lab by Oscar Farrar in Right Groin via Subcutaneous. 1:58:18 2 mg VERSED given in lab by Adriel Gill, RN in Left Forearm via Peripheral IV. 1:58:28 25 mcg FENTANYL given in lab by Adriel Gill RN in Left Forearm via Peripheral IV. 1:59:11 Access site was Right Femoral Artery. 1:59:21 A SHEATH, FR5 TERUMO (10CM) FR 5 was advanced into the Fem Art (right) using the Percutaneou s technique. A AR MOD INFINITI CATHETER FR 5 was advanced over a wire. OMNIPAQUE, 350 MG, 150ML 150ML was use d for 1:59:44 injections. 2:00:51 The RCA was injected and visualized at various angles. OMNIPAQUE, 350 MG, 150ML 150ML used. 2:01:23 Catheter was removed 2:01:32 Activated Clotting Time Drawn 2:01:54 HR=79 bpm, SJHI=514/86 mmhg, SpO2=96.0 %, Resp=28 B/min, Pain=6, Johnathon=10, Posey=2 A JL 4.0 INFINITI CATHETER FR 5 was advanced over a wire. OMNIPAQUE, 350 MG, 150ML 150ML was use d for 2:02:43 injections. 2:02:54 The LCA was injected and visualized at various angles. OMNIPAQUE, 350 MG, 150ML 150ML used. 2:03:10 Catheter was removed A JL 5.0 INFINITI CATHETER FR 5 was advanced over a wire. OMNIPAQUE, 350 MG, 150ML 150ML was use d for 2:04:14 injections. Recorded Pressure: Ao, HR=78, Condition=Condition 1 2:04:36 (Aorta) Ao 156/93/120 2:04:55 ACT (Normal Range 90-180) = 159 2:06:20 Catheter was removed 2:06:25 HR=75 bpm, VNYC=244/88 mmhg, SpO2=98.0 %, Resp=15 B/min, Pain=6, Johnathon=10, Posey=2 A SHEATH, FR6.5 PRELUDE 11CM FR 6.5 was exchanged in the Fem Art (right). This was necessary in order to 2:07:17 accomodate a larger catheter. 2:07:33 8000 units HEPARIN given in lab by Adriel Gill, VERNON in Left Forearm via Peripheral IV. A AR 1 SH GUIDE CATHETER FR 6 was advanced over a wire. OMNIPAQUE, 350 MG, 150ML 150ML was used for 2:07:48 injections. 2:09:22 A WIRE, RUNTHROUGH NS FLOPPY .014 180CM 180CM was inserted via Fem Art (right). 2:09:50 Interventional wire has crossed the lesion 2:11:12 Aspiration catheter inserted 2:11:15 HR=78 bpm, BZYO=552/81 mmhg, SpO2=98.0 %, Resp=19 B/min, Pain=6, Johnathon=10, Posey=2 2:11:38 Aspiration in progress 2:12:05 Catheter was removed 2:12:53 The RCA was injected and visualized at various angles. OMNIPAQUE, 350 MG, 150ML 150ML used. A BALLOON, 2.0 X 15MM EUPHORA 15MM was inserted over WIRE, RUNTHROUGH NS FLOPPY .014 180CM 180CM via 2:13:32 the RCA Mid. 2:13:47 0.5 mg ATROPINE given in lab by Adriel Gill, RN in Left Forearm via Peripheral IV. A BALLOON, 2.0 X 15MM EUPHORA 15MM over a WIRE, RUNTHROUGH NS FLOPPY .014 180CM 180CM in the RCA Mid 2:15:18 was inflated using a 30 JULIA INDEFLATOR at 16 julia for 11 sec. A balloons over a WIRE, RUNTHROUGH NS FLOPPY .014 180CM 180CM in the RCA Mid was inflated using a 30 JULIA 2:15:27 INDEFLATOR at 16 julia for 6 sec. A BALLOON, 2.0 X 15MM EUPHORA 15MM over a WIRE, RUNTHROUGH NS FLOPPY .014 180CM 180CM in the RCA Mid 2:15:45 was inflated using a 30 JULIA INDEFLATOR at 16 julia for 6 sec. A BALLOON, 2.0 X 15MM EUPHORA 15MM over a WIRE, RUNTHROUGH NS FLOPPY .014 180CM 180CM in the RCA Mid 2:16:08 was inflated using a 30 JULIA INDEFLATOR at 16 julia for 6 sec. A BALLOON, 2.0 X 15MM EUPHORA 15MM over a WIRE, RUNTHROUGH NS FLOPPY .014 180CM 180CM in the RCA Mid 2:16:12 was inflated using a 30 JULIA INDEFLATOR at 16 julia for 6 sec. A BALLOON, 2.0 X 15MM EUPHORA 15MM over a WIRE, RUNTHROUGH NS FLOPPY .014 180CM 180CM in the RCA Mid 2:16:22 was inflated using a 30 JULIA INDEFLATOR at 16 julia for 6 sec. 2:16:26 Balloon Removed. 2:16:59 100 mcg NTG (IC) given in lab by Oscar Farrar via Intra-coronary. 2:17:06 HR=47 bpm, NIBP=83/45 mmhg, SpO2=98.0 %, Resp=29 B/min, Pain=6, Johnathon=10, Posey=2 2:17:08 Activated Clotting Time Drawn 2:17:32 The RCA was injected and visualized at various angles. OMNIPAQUE, 350 MG, 150ML 150ML used. An STENT, 3.0 30 INTEGRITY 3.0 30 Bare Metal Stent was inserted through a AR 1 SH GUIDE CATHETER FR 6 over a 2:19:43 WIRE, RUNTHROUGH NS FLOPPY .014 180CM 180CM. A STENT, 3.0 30 INTEGRITY 3.0 30 was deployed using a 30 JULIA INDEFLATOR at 16 atmospheres for 20 seconds in 2:19:45 the RCA Mid. 2:20:28 Delivery device removed An STENT, 3.0 30 INTEGRITY 3.0 30 Bare Metal Stent was inserted through a AR 1 SH GUIDE CATHETER FR 6 over a 2:21:24 WIRE, RUNTHROUGH NS FLOPPY .014 180CM 180CM. 2:22:03 HR=74 bpm, NIBP=98/57 mmhg, ZuG6=831.0 %, Resp=23 B/min, Pain=6, Johnathon=10, Posey=2 A STENT, 3.0 30 INTEGRITY 3.0 30 was deployed using a 30 JULIA INDEFLATOR at 16 atmospheres for 20 seconds in 2:22:21 the RCA Mid. 2:22:58 Delivery device removed 2:23:04 ACT (Normal Range 90-180) = 324 2:23:31 The RCA was injected and visualized at various angles. OMNIPAQUE, 350 MG, 150ML 150ML used. 2:25:44 An implantable Bare Metal Stent was inserted through a catheter over a wire. A STENT, 3.5 18 INTEGRITY 3.5 18 was deployed using a 30 JULIA INDEFLATOR at 13 atmospheres for 18 seconds in 2:25:47 the RCA Mid. 2:26:35 Re-inflated the stent balloon in the RCA Mid to 14 JULIA for 12 seconds. 2:26:56 HR=64 bpm, ZKUG=196/77 mmhg, SpO2=99.0 %, Resp=25 B/min, Pain=6, Johnathon=10, Posey=2 2:27:24 Re-inflated the stent balloon in the RCA Mid to 13 JULIA for 10 seconds. 2:27:39 Re-inflated the stent balloon in the RCA Mid to 14 JULIA for 10 seconds. 2:27:54 Re-inflated the stent balloon in the RCA Mid to 14 JULIA for 8 seconds. 2:28:19 Delivery device removed 2:28:38 The RCA was injected and visualized at various angles. OMNIPAQUE, 350 MG, 150ML 150ML used. 2:29:06 Wire removed 2:29:12 Catheter was removed Recorded Pressure: LV, HR=72, Condition=Condition 1 2:30:28 (Left Ventricle) LV 109/18/25 2:31:18 Injector loaded by Adriel Gill R.N. 2:31:28 HR=64 bpm, NIBP=98/61 mmhg, SpO2=99.0 %, Resp=22 B/min, Pain=6, Johnathon=10, Posey=2 2:31:48 The LV was injected at 10 cc/sec for a total of 30. OMNIPAQUE, 350 MG, 50ML 50ML used. Recorded Pressure: LV, Ao, HR=73, Condition=Condition 1 2:32:28 (Left Ventricle) LV 100/17/19, (Aorta) Ao 106/74/88 2:32:51 Catheter was removed 2:33:09 Case End 2:34:31 An injection in the Fem Art (right) was made through the SHEATH, FR6.5 PRELUDE 11CM FR 6.5. 2:36:23 HR=68 bpm, MOHU=469/66 mmhg, SpO2=98.0 %, Resp=17 B/min, Pain=6, Johnathon=10, Posey=2 2:36:50 ANGIOSEAL, FR6 VIP FR 6 placement in the Fem Art (right) Assessment: Final Case, HR=67 BPM, Rhythm=Irregular, HDMT=057/66 mmhg, Edema=None, Color=Normal , Skin = Warm, Dry Right Pulses: Manolo Ped=1, Femoral=2 2:37:09 Left Pulses: Manolo Ped=1, Femoral=2 Neurological: State=Alert, Ox3, CELESTE Respiration: Resp=13 B/min, SpO2=97 %, O2=2 lpm 2:38:16 NIBP STAT measurement started. 2:38:47 No case complications noted. 2:38:48 HR=64 bpm, NIBP=90/56 mmhg, SpO2=99.0 %, Resp=14 B/min, Pain=6, Johnathon=10, Posey=2 2:38:50 Cine recording checked. 2:41:24 HR=67 bpm, NIBP=99/54 mmhg, RtZ5=782.0 %, Resp=23 B/min, Pain=6, Johnathon=10, Posey=2 2:41:50 Bedside Report will be given. 2:44:24 600 mg PLAVIX given in lab by Adriel Gill, VERNON via Oral. 2:45:05 Sterile dressing applied to site 2:45:14 Implantable Device card placed in patient's chart. 2:45:19 A Left Heart Cath was performed. 2:45:32 Vitals capture stopped. 2:48:26 [facility] End Study - Contrast Media Used In Study Contrast Total Opened (mL) Total Used (mL) Total Wasted (mL) Omnipaque 200 200 0 End Study - Maximum Contrast Load Max Contrast Load (mL) 479.8 End Study - Radiation Exposure Fluoro Time (minutes) 8.4 End Study - Patient Disposition Complications Transferred To Interventional Outcome No Critical Care Bed successful
[2018-01-02] MEDS ORDERED: MISC INFORMATION XX ONE (03:00)
[2018-01-02] MEDS ORDERED: ACETAMINOPHEN 325 MG TAB PO PRN (03:00)
--- NOTE | 2018-01-02 03:44 | MB ---
cc: Oscar Farrar MD DATE: 01/02/2018 HISTORY OF PRESENT ILLNESS: The patient is a 52-year-old white male with a history of uncontrolled hypertension who developed left-sided chest pain 2 hours prior to arrival to the [place] emergency room. He was found to have acute inferior wall myocardial infarction and was transferred to the [facility] for emergent cardiac catheterization. He continues to have severe substernal chest discomfort with ST elevations in the inferolateral leads. PAST MEDICAL HISTORY: Positive for uncontrolled hypertension, diverticulitis, tonsillectomy. MEDICATIONS: Lisinopril 5 mg daily. ALLERGIES: NONE. SOCIAL HISTORY: The patient is a smoker. He drinks alcohol daily. FAMILY HISTORY: Positive for heart disease. REVIEW OF SYSTEMS: Otherwise negative. Actually, his brother had a recent bypass. PHYSICAL EXAMINATION: VITAL SIGNS: Blood pressure 158/85, pulse 85 and regular. HEENT: Negative. NECK: 2+ carotid upstrokes, no bruits. LUNGS: Clear. HEART: Regular with no murmur, gallop or rub. ABDOMEN: Soft and obese. EXTREMITIES: Without edema. 2+ peripheral pulses. NEUROLOGIC: Grossly nonfocal. EKG was reviewed and it showed normal sinus rhythm and inferolateral ST elevations with reciprocal ST depressions. LABORATORY DATA: Hemoglobin 17.7, potassium 3.9, creatinine 1.0. AST and ALT normal. Troponin 0.02. CK 79. DIAGNOSES: 1. Acute inferolateral myocardial infarction (STEMI). 2. Uncontrolled hypertension. 3. Smoking. This patient will undergo emergent cardiac catheterization and coronary intervention if necessary. He understands the risks and benefits and wishes to proceed. MD LUIS Nelson/SHAUNA , 02:37 AM , 03:43 AM LOLA
--- NOTE | 2018-01-02 04:05 | MR ---
cc: Oscar Farrar MD DATE: 01/02/2018 INDICATION: Acute inferolateral myocardial infarction, STEMI, class 4 angina. PROCEDURE PERFORMED: 1. Retrograde left heart catheterization with left ventriculography and selective coronary angiography. 2. Thrombectomy, angioplasty and stenting of the proximal and mid right coronary artery. 3. Moderate sedation. ACCESS SITE: Right femoral artery. EQUIPMENT USED: A 5-Vietnamese pigtail catheter, 5 Fr JL4 and AR modified coronary catheters, AR1 guide with side holes, Run through wire, 2.0 x 15 mm balloon for predilatation, Kennard thrombectomy catheter, a 3.0 x 30 mm Integrity stent at 16 atmospheres, 3.0 x 30 mm Integrity stent at 16 atmospheres, 3.5 x 18 mm Integrity stent at 14 atmospheres, with all stents postdilated with a 3.5 mm stent balloon at 14 atmospheres. MEDICATIONS: Versed IV, fentanyl IV, heparin IV, nitroglycerin IC, atropine IV, Plavix 600 mg p.o. CONTRAST: Omnipaque 200 mL. COMPLICATIONS: None. BLOOD LOSS: Less than 10 mL METHOD OF HEMOSTASIS: Angio-Seal closure. RESULTS: HEMODYNAMICS: Heart rate 73 beats per minute, LV end diastolic pressure 17 mmHg, left ventricle 105/17, aorta 105/74/88. LEFT VENTRICULOGRAPHY: Ejection fraction 40%. Wall motion: Inferior hypokinesis, no mitral regurgitation. CORONARY ANGIOGRAPHY: Left main coronary patent. Left anterior descending artery has 60% stenosis in the mid portion, followed by 30% stenosis in the mid portion. D1 patent. D2 patent. Left circumflex artery has 30% stenosis in the mid portion. OM1 has 20% stenosis. Right coronary artery is a large, dominant vessel, which is totally occluded in the proximal portion. Lesion length 60 mm. Pre-ANASTACIO flow 0, post-ANASTACIO flow 3, post-stenosis 0. Type C lesion. Post-intervention angiography revealed excellent patency of the stented segments. No evidence of dissection, thrombosis or distal embolization. DIAGNOSES: 1. Acute ST elevation myocardial infarction. 2. Coronary artery disease with total occlusion of the right coronary artery with thrombus. 3. Successful thrombectomy, angioplasty and stenting of the proximal and mid right coronary artery. 4. Moderate left ventricular dysfunction consistent with ischemic cardiomyopathy. DISPOSITION: Mr. Hussein will be monitored on telemetry after his procedure. We will continue therapy with Plavix for at least 3 months, and aspirin indefinitely. We will also continue aggressive modification of his cardiac risk factors. He was strongly encouraged to quit smoking. He will follow up with his primary care physician in his office after discharge. MD LUIS Nelson/SHAUNA , 02:46 AM , 04:04 AM LOLA
--- NOTE | 2018-01-02 08:40 | HHI.HP ---
[facility] Service [facility] Primary Care Physician No Primary Care Physician Admission Diagnosis ACUTE SD STEMI Diagnoses: Chief Complaint: sob Travel History International Travel<30 Days: No Contact w/Intl Traveler <30 Da: No Traveled to Known Affected Are: No History of Present Illness Patient is a very pleasant 52-year-old male with past medical history of uncontrolled hypertension is also noncompliant with medications and follow-up with doctors. Patient developed left-sided chest pain went to the [place] emergency room[facility]. He was transferred to the [facility] after was found to have acute inferior wall myocardial infarction. Patient had emergent cardiac catheterization. He feels much better after the cast today. He currently denies any chest pain shortness of breath. No nausea vomiting no diarrhea or constipation. No diaphoresis. No lightheadedness. Review of Systems Except as stated in HPI: all other systems reviewed are Neg Past Family Social History Past Medical History Uncontrolled hypertension, diverticulitis, tonsillectomy Past Surgical History Right ACL surgery Reported Medications Reported Meds & Active Scripts Active Lisinopril 5 Mg Tab 5 Mg PO DAILY Allergies: Coded Allergies: No Known Allergies (Unverified , 01/02/18) Family History Brother with triple bypass Social History Alcohol use 3-4 beers per day. Tobacco use 2 PPD. Denies illicit drug use. Physical Exam Vital Signs Vital Signs Date Time Temp Pulse Resp B/P (MAP) Pulse Ox O2 Delivery O2 Flow Rate FiO2 01/02/18 07:00 97 Room Air 01/02/18 03:00 98.3 63 16 99/65 (76) 92 01/02/18 03:00 92 Room Air 01/02/18 01:13 01/02/18 01:13 85 158/85 01/02/18 01:10 88 18 152/82 (105) 98 Room Air 01/02/18 01:00 20 98 Room Air 01/02/18 00:50 98 2.00 Physical Exam GENERAL: This is a well-nourished, well-developed patient, in no apparent distress. SKIN: No rashes, ecchymoses or lesions. Cool and dry. HEAD: Atraumatic. Normocephalic. No temporal or scalp tenderness. EYES: Pupils equal round and reactive. Extraocular motions intact. No scleral icterus. No injection or drainage. ENT: Nose without bleeding, purulent drainage or septal hematoma. Throat without erythema, tonsillar hypertrophy or exudate. Uvula midline. Airway patent. NECK: Trachea midline. No JVD or lymphadenopathy. Supple, nontender, no meningeal signs. CARDIOVASCULAR: Regular rate and rhythm without murmurs, gallops, or rubs. RESPIRATORY: Clear to auscultation. Breath sounds equal bilaterally. No wheezes , rales, or rhonchi. GASTROINTESTINAL: Abdomen soft, non-tender, nondistended. No hepato-splenomegaly , or palpable masses. No guarding. MUSCULOSKELETAL: Extremities without clubbing, cyanosis, or edema. No joint tenderness, effusion, or edema noted. No calf tenderness. Negative Homans sign bilaterally. NEUROLOGICAL: Awake and alert. Cranial nerves II through XII intact. Motor and sensory grossly within normal limits. Five out of 5 muscle strength in all muscle groups. Normal speech. Laboratory Laboratory Tests Test 01/02/18 01:01 White Blood Count 16.7 Red Blood Count 6.05 Hemoglobin 17.7 Hematocrit 51.2 Mean Corpuscular Volume 84.5 Mean Corpuscular Hemoglobin 29.2 Mean Corpuscular Hemoglobin Concent 34.5 Red Cell Distribution Width 13.6 Platelet Count 399 Mean Platelet Volume 8.8 Neutrophils (%) (Auto) 57.7 Lymphocytes (%) (Auto) 29.2 Monocytes (%) (Auto) 9.2 Eosinophils (%) (Auto) 1.9 Basophils (%) (Auto) 2.0 Neutrophils # (Auto) 9.7 Lymphocytes # (Auto) 4.9 Monocytes # (Auto) 1.5 Eosinophils # (Auto) 0.3 Basophils # (Auto) 0.3 CBC Comment DIFF FINAL Differential Comment Prothrombin Time 10.7 Prothromb Time International Ratio 1.1 Activated Partial Thromboplast Time 25.6 Blood Urea Nitrogen 9 Creatinine 0.98 Random Glucose 125 Total Protein 7.6 Albumin 3.5 Calcium Level 9.2 Alkaline Phosphatase 84 Aspartate Amino Transf (AST/SGOT) 14 Alanine Aminotransferase (ALT/SGPT) 18 Total Bilirubin 0.3 Sodium Level 140 Potassium Level 3.9 Chloride Level 107 Carbon Dioxide Level 25.5 Anion Gap 8 Estimat Glomerular Filtration Rate 80 Total Creatine Kinase 79 Troponin I 0.02 Result Diagram: 01/02/1810001/02/18100 Caprini VTE Risk Assessment Caprini VTE Risk Assessment: Mod/High Risk (score >= 2) Caprini Risk Assessment Model Point Value = 1 Point Value = 2 Point Value = 3 Point Value = 5 Age 41-60 Minor surgery BMI > 25 kg/m2 Swollen legs Varicose veins or History of unexplained or recurrent spontaneous Oral contraceptives or hormone replacement Sepsis (< 1 month) Serious lung disease, including pneumonia (< 1 month) Abnormal pulmonary function Acute myocardial infarction Congestive heart failure (< 1 month) History of inflammatory bowel disease Medical patient at bed rest Age 61-74 Arthroscopic surgery Major open surgery (> 45 min) Laparoscopic surgery (> 45 min) Malignancy Confined to bed (> 72 hours) Immobilizing plaster cast Central venous access Age >= 75 History of VTE Family history of VTE Factor V Leiden Prothrombin [id number] Lupus anticoagulant Anticardiolipin antibodies Elevated serum homocysteine Heparin-induced thrombocytopenia Other congenital or acquired thrombophilia Stroke (< 1 month) Elective arthroplasty Hip, pelvis, or leg fracture Acute spinal cord injury (< 1 month) Prophylaxis Regimen Total Risk Factor Score Risk Level Prophylaxis Regimen 0-1 Low Early ambulation 2 Moderate Order ONE of the following: *Sequential Compression Device (SCD) *Heparin 5000 units SQ BID 3-4 Higher Order ONE of the following medications: *Heparin 5000 units SQ TID *Enoxaparin/Lovenox 40 mg SQ daily (WT < 150 kg, CrCl > 30 mL/min) *Enoxaparin/Lovenox 30 mg SQ daily (WT < 150 kg, CrCl > 10-29 mL/min) *Enoxaparin/Lovenox 30 mg SQ BID (WT < 150 kg, CrCl > 30 mL/min) AND/OR *Sequential Compression Device (SCD) 5 or more Highest Order ONE of the following medications: *Heparin 5000 units SQ TID (Preferred with Epidurals) *Enoxaparin/Lovenox 40 mg SQ daily (WT < 150 kg, CrCl > 30 mL/min) *Enoxaparin/Lovenox 30 mg SQ daily (WT < 150 kg, CrCl > 10-29 mL/min) *Enoxaparin/Lovenox 30 mg SQ BID (WT < 150 kg, CrCl > 30 mL/min) AND *Sequential Compression Device (SCD) Assessment and Plan Problem List: (1) Hypertensive urgency ICD Code: I16.0 - Hypertensive urgency (2) STEMI (ST elevation myocardial infarction) ICD Code: I21.3 - ST elevation (STEMI) myocardial infarction of unspecified site Status: Acute Assessment and Plan Acute inferior lateral myocardial infarction Uncontrolled hypertension Tobaccoism Alcohol use monitor for withdrawal symptoms Noted with runs of V. tach. 5/10 and HR in 50s. Continue beta-raymon per Cardiology Status post emergent cardiac catheterization with stent placement by Dr. Farrar Continue aspirin, Plavix, carvedilol, lisinopril, atorvastatin Lipid panel reviewed Start with the patient is refusing any medications. Not in withdrawals at this time. The patient is counselled extensively regarding tobacco use and alcohol use he expressed understanding. Discharge plan: Discharge when cleared by cardiology. Discussed Condition With Patient, nurse Physician Certification 2 Midnight Certification Type: Admission for Inpatient Services Order for Inpatient Services The services are ordered in accordance with Medicare regulations or non- Medicare payer requirements, as applicable. In the case of services not specified as inpatient-only, they are appropriately provided as inpatient services in accordance with the 2-midnight benchmark. Estimated LOS (days): 3 days is the estimated time the patient will need to remain in the hospital, assuming treatment plan goals are met and no additional complications. Post-Hospital Plan: Home Problem Qualifiers (1) STEMI (ST elevation myocardial infarction): Qualified Codes: I21.3 - ST elevation (STEMI) myocardial infarction of unspecified site Jina Dewitt MD January 02, 2018 08:40
[2018-01-02 08:55] LABS: AUTOMATED NEUTROPHIL # 9.9 TH/MM3 (1.8-7.7); BASOPHIL # 0.1 TH/MM3 (0-0.2); BASOPHIL % 0.5 % (0.0-2.0); EOSINOPHIL # 0.1 TH/MM3 (0-0.4); EOSINOPHIL % 0.9 % (0.0-4.0); HEMATOCRIT 46.3 % (39.0-51.0); HEMOGLOBIN 15.3 GM/DL (13.0-17.0); LYMPH % 23.7 % (9.0-44.0); LYMPHOCYTE # 3.5 TH/MM3 (1.0-4.8); MEAN CELL VOLUME 85.4 FL (80.0-100.0); MEAN CORPUSCULAR HEMOGLOBIN 28.3 PG (27.0-34.0); MEAN CORPUSCULAR HGB CONC 33.2 % (32.0-36.0); MEAN PLATELET VOLUME 8.6 FL (7.0-11.0); MONO % 8.6 % (0.0-8.0); MONOCYTE # 1.3 TH/MM3 (0-0.9); NEUT % 66.3 % (16.0-70.0); PLATELET COUNT 317 TH/MM3 (150-450); RED BLOOD COUNT 5.42 MIL/MM3 (4.50-5.90); WHITE BLOOD COUNT 14.9 TH/MM3 (4.0-11.0)
[2018-01-02] MEDS: CARVEDILOL 3.125 MG TAB PO SCH ×2 (08:58→20:50)
[2018-01-02] MEDS: CLOPIDOGREL 75 MG TAB PO SCH (08:59)
[2018-01-02] MEDS: ASPIRIN 81 MG CHEW TAB PO SCH (08:59)
[2018-01-02] MEDS: LISINOPRIL 5 MG TAB PO SCH (09:00)
[2018-01-02] MEDS ORDERED: IOHEXOL 350 MG/ML 100 ML BTL (for Cath Lab) OTHER ONE (12:15)
--- NOTE | 2018-01-02 19:07 | EKG ---
Date Performed: 01/02/2018 Time Performed: 00:47:00 PTAGE: 52 years EKG: Sinus rhythm WITH OCCASIONAL SUPRAVENTRICULAR PREMATURE COMPLEXES ST ELEVATION, CONSIDER INFERIOR INJURY ACUTE NV PREVIOUS TRACING 12/22/17 @ 15.46.07 DOCTOR: Sal Durant Interpretating Date/Time 01/02/2018 19:11:02
--- NOTE | 2018-01-02 20:14 | EKG ---
Date Performed: 01/02/2018 Time Performed: 03:24:22 PTAGE: 52 years EKG: CONSIDER ACUTE ST ELEVATION GA Sinus rhythm with PVC(s) Inferior ST elevation, CONSIDER ACUTE INFARCT Septal and lateral ST-T changes are nonspe cific Resolution of the acute injury pattern when compared to previous Tracing. Abnormal ECG PREVIOUS TRACING : 01/02/2018 00.47 DOCTOR: Sal Durant Interpretating Date/Time 01/02/2018 20:12:08
[2018-01-02] MEDS ORDERED: ATORVASTATIN 40 MG TAB PO SCH (21:00)
[2018-01-03] VITALS (19 sets, daily range): BP systolic 116–131; BP diastolic 70–81; PULSE 55–66; RESP 16–18; TEMP 97.4–98.8; O2SAT 94–97
[2018-01-03 04:55] LABS: AUTOMATED NEUTROPHIL # 9.1 TH/MM3 (1.8-7.7); BASOPHIL # 0.1 TH/MM3 (0-0.2); BASOPHIL % 0.5 % (0.0-2.0); EOSINOPHIL # 0.1 TH/MM3 (0-0.4); EOSINOPHIL % 0.8 % (0.0-4.0); HEMATOCRIT 42.8 % (39.0-51.0); HEMOGLOBIN 14.2 GM/DL (13.0-17.0); LYMPH % 22.7 % (9.0-44.0); LYMPHOCYTE # 3.2 TH/MM3 (1.0-4.8); MEAN CELL VOLUME 85.7 FL (80.0-100.0); MEAN CORPUSCULAR HEMOGLOBIN 28.5 PG (27.0-34.0); MEAN CORPUSCULAR HGB CONC 33.3 % (32.0-36.0); MEAN PLATELET VOLUME 8.8 FL (7.0-11.0); MONO % 10.6 % (0.0-8.0); MONOCYTE # 1.5 TH/MM3 (0-0.9); NEUT % 65.4 % (16.0-70.0); PLATELET COUNT 243 TH/MM3 (150-450); RED BLOOD COUNT 4.99 MIL/MM3 (4.50-5.90); RED CELL DISTRIBUTION WIDTH 13.7 % (11.6-17.2); WHITE BLOOD COUNT 13.9 TH/MM3 (4.0-11.0)
[2018-01-03 05:28] LABS: BICARBONATE 23.5 MEQ/L (21.0-32.0); CREATININE 0.78 MG/DL (0.60-1.30)
[2018-01-03 05:41] LABS: CHOLESTEROL/ HDL RATIO 6.06 RATIO; HDL CHOLESTEROL 25.9 MG/DL (40.0-60.0)
[2018-01-03] MEDS: CARVEDILOL 3.125 MG TAB PO SCH (08:55)
[2018-01-03] MEDS: CLOPIDOGREL 75 MG TAB PO SCH (08:55)
[2018-01-03] MEDS: LISINOPRIL 5 MG TAB PO SCH (08:55)
[2018-01-03] MEDS: ASPIRIN 81 MG CHEW TAB PO SCH (08:56)
--- NOTE | 2018-01-03 15:14 | EKG ---
Date Performed: 01/03/2018 Time Performed: 07:39:20 PTAGE: 52 years EKG: Sinus rhythm . rSr'(V1) - probable normal variant Inferior infarct - age undetermined Ant/septal and lateral ST-T changes are nonspecific Abnormal ECG PREVIOUS TRACING : 01/02/2018 06.11 DOCTOR: Anahy Pham Interpretating Date/Time 01/03/2018 15:16:22
--- NOTE | 2018-01-03 16:47 | PD.CARD.PN ---
Subjective Subjective Remarks No CP or SOB, feels fine Objective Medications Current Medications Medications (Trade) Dose Ordered Sig/Kj Route Start Time Stop Time Status Last Admin Nitroglycerin/ Dextrose 250 ml @ 3 mls/hr TITRATE PRN IV 01/02/18 01:15 01/02/18 01:13 (Tylenol) 325 mg Q4H PRN PO 01/02/18 03:00 (Aspirin Chew) 81 mg DAILY PO 01/02/18 09:00 01/03/18 08:56 (Plavix) 75 mg DAILY PO 01/02/18 09:00 01/03/18 08:55 (Coreg) 6.25 mg BID PO 01/02/18 09:00 01/03/18 08:55 (Prinivil) 5 mg DAILY PO 01/02/18 09:00 01/03/18 08:55 (Lipitor) 80 mg HS PO 01/02/18 21:00 01/02/18 20:51 Vital Signs / I&O Vital Signs Date Time Temp Pulse Resp B/P (MAP) Pulse Ox O2 Delivery O2 Flow Rate FiO2 01/03/18 11:30 94 Room Air 01/03/18 11:30 97.4 55 18 123/72 (89) 94 01/03/18 08:15 98.5 58 18 124/72 (89) 95 01/03/18 08:15 58 01/03/18 08:15 95 Room Air 01/03/18 06:00 58 01/03/18 05:00 56 01/03/18 04:00 56 01/03/18 03:30 98.8 57 16 116/70 (85) 96 01/03/18 03:00 94 Nasal Cannula 2.00 01/03/18 03:00 56 01/03/18 02:00 56 01/03/18 01:00 58 01/03/18 00:00 63 01/02/18 23:39 99.1 55 16 107/65 (79) 96 01/02/18 23:02 94 Nasal Cannula 2.00 01/02/18 23:00 55 01/02/18 22:49 138 01/02/18 22:00 56 01/02/18 21:00 84 01/02/18 20:17 123 01/02/18 20:00 56 01/02/18 20:00 99.9 59 16 105/66 (79) 95 01/02/18 20:00 95 Nasal Cannula 2.00 01/02/18 19:00 56 I/O 01/02/18 01/02/18 01/02/18 01/03/18 01/03/18 01/03/18 07:00 15:00 23:00 07:00 15:00 23:00 Intake Total 0 ml 1200 ml 620 ml Output Total 0 ml 950 ml 300 ml Balance 0 ml 250 ml 320 ml Intake Oral 0 ml 1200 ml 620 ml Output Urine Total 0 ml 950 ml 300 ml # Voids 2 # Bowel Movements 0 0 Physical Exam GENERAL: In NAD. SKIN: Warm and dry. HEAD: Normocephalic. EYES: No scleral icterus. No injection or drainage. NECK: Supple, trachea midline. No JVD or lymphadenopathy. CARDIOVASCULAR: Regular rate and rhythm without murmurs, gallops, or rubs. RESPIRATORY: Breath sounds equal bilaterally. No accessory muscle use. GASTROINTESTINAL: Abdomen soft, non-tender, nondistended. MUSCULOSKELETAL: No cyanosis, or edema. Groin stable Laboratory Laboratory Tests Test 01/03/18 04:04 White Blood Count 13.9 TH/MM3 Red Blood Count 4.99 MIL/MM3 Hemoglobin 14.2 GM/DL Hematocrit 42.8 % Mean Corpuscular Volume 85.7 FL Mean Corpuscular Hemoglobin 28.5 PG Mean Corpuscular Hemoglobin Concent 33.3 % Red Cell Distribution Width 13.7 % Platelet Count 243 TH/MM3 Mean Platelet Volume 8.8 FL Neutrophils (%) (Auto) 65.4 % Lymphocytes (%) (Auto) 22.7 % Monocytes (%) (Auto) 10.6 % Eosinophils (%) (Auto) 0.8 % Basophils (%) (Auto) 0.5 % Neutrophils # (Auto) 9.1 TH/MM3 Lymphocytes # (Auto) 3.2 TH/MM3 Monocytes # (Auto) 1.5 TH/MM3 Eosinophils # (Auto) 0.1 TH/MM3 Basophils # (Auto) 0.1 TH/MM3 CBC Comment DIFF FINAL Differential Comment Blood Urea Nitrogen 8 MG/DL Creatinine 0.78 MG/DL Random Glucose 105 MG/DL Calcium Level 8.0 MG/DL Sodium Level 142 MEQ/L Potassium Level 3.6 MEQ/L Chloride Level 109 MEQ/L Carbon Dioxide Level 23.5 MEQ/L Anion Gap 10 MEQ/L Estimat Glomerular Filtration Rate 104 ML/MIN Total Creatine Kinase 1164 U/L Creatine Kinase MB 37.6 NG/ML Creatine Kinase MB % 3.2 % Triglycerides Level 136 MG/DL Cholesterol Level 157 MG/DL LDL Cholesterol 104 MG/DL HDL Cholesterol 25.9 MG/DL Cholesterol/HDL Ratio 6.06 RATIO Assessment and Plan Problem List: (1) STEMI (ST elevation myocardial infarction) ICD Codes: I21.3 - ST elevation (STEMI) myocardial infarction of unspecified site Status: Acute (2) CAD (coronary artery disease) ICD Codes: I25.10 - Atherosclerotic heart disease of [place] coronary artery without angina pectoris (3) Stented coronary artery ICD Codes: Z95.5 - Presence of coronary angioplasty implant and graft (4) Ischemic cardiomyopathy ICD Codes: I25.5 - Ischemic cardiomyopathy (5) HTN (hypertension) ICD Codes: I10 - Essential (primary) hypertension Assessment and Plan No CP or SOB. No arrhythmias. Continue Plavix for 3 months; baby ASA, lisinopril , beta raymon, and statin long-term. DC home. F/u w PCP after discharge. Problem Qualifiers (1) STEMI (ST elevation myocardial infarction): Qualified Codes: I21.3 - ST elevation (STEMI) myocardial infarction of unspecified site Oscar Farrar MD January 03, 2018 16:47
[2018-01-03] MEDS ORDERED: CARV3.125 PO (17:15)
[2018-01-03] MEDS ORDERED: ASPI81 PO (17:15)
[2018-01-03] MEDS ORDERED: ATOR40TA16 PO (17:15)
[2018-01-03] MEDS ORDERED: PLAV75TA29 PO (17:15)
[2018-01-03] MEDS ORDERED: LISI-519 PO (18:29)
--- NOTE | 2018-01-03 18:36 | HHI.PR ---
Subjective Remarks Patient says he is feeling well. Denies any chest pain or shortness of breath. Denies any muscle aches or pain. I discussed with him the importance of hydration and follow-up with primary care. His friend in the room says he is a patient of [facility] and will make sure the patient follows up there. Objective Vital Signs Date Time Temp Pulse Resp B/P (MAP) Pulse Ox O2 Delivery O2 Flow Rate FiO2 01/03/18 17:00 58 01/03/18 16:00 98.0 61 18 131/81 (98) 97 01/03/18 16:00 66 01/03/18 16:00 97 Room Air 01/03/18 15:00 62 01/03/18 14:00 62 01/03/18 13:00 60 01/03/18 12:00 60 01/03/18 11:30 94 Room Air 01/03/18 11:30 97.4 55 18 123/72 (89) 94 01/03/18 11:00 58 01/03/18 10:00 58 01/03/18 09:00 60 01/03/18 08:15 98.5 58 18 124/72 (89) 95 01/03/18 08:15 58 01/03/18 08:15 95 Room Air 01/03/18 06:00 58 01/03/18 05:00 56 01/03/18 04:00 56 01/03/18 03:30 98.8 57 16 116/70 (85) 96 01/03/18 03:00 94 Nasal Cannula 2.00 01/03/18 03:00 56 01/03/18 02:00 56 01/03/18 01:00 58 01/03/18 00:00 63 01/02/18 23:39 99.1 55 16 107/65 (79) 96 01/02/18 23:02 94 Nasal Cannula 2.00 01/02/18 23:00 55 01/02/18 22:49 138 01/02/18 22:00 56 01/02/18 21:00 84 01/02/18 20:17 123 01/02/18 20:00 56 01/02/18 20:00 99.9 59 16 105/66 (79) 95 01/02/18 20:00 95 Nasal Cannula 2.00 01/02/18 19:00 56 I/O 01/02/18 01/02/18 01/02/18 01/03/18 01/03/18 01/03/18 07:00 15:00 23:00 07:00 15:00 23:00 Intake Total 0 ml 1200 ml 620 ml 800 ml Output Total 0 ml 950 ml 300 ml Balance 0 ml 250 ml 320 ml 800 ml Intake Oral 0 ml 1200 ml 620 ml 800 ml Output Urine Total 0 ml 950 ml 300 ml # Voids 2 5 # Bowel Movements 0 0 0 Result Diagram: 01/03/184 01/03/18403 Objective Remarks GENERAL: Patient sitting up in bed. Appears comfortable. SKIN: Warm and dry. HEAD: Normocephalic. EYES: No scleral icterus. No injection or drainage. NECK: Supple, trachea midline. No JVD. CARDIOVASCULAR: Regular rate and rhythm without murmurs, gallops, or rubs. RESPIRATORY: Breath sounds equal bilaterally. No accessory muscle use. GASTROINTESTINAL: Abdomen soft, non-tender, nondistended. MUSCULOSKELETAL: No cyanosis, or edema. BACK: Nontender without obvious deformity. No CVA tenderness. A/P Assessment and Plan //Acute inferior lateral myocardial infarction //Uncontrolled hypertension //Tobaccoism //Alcohol use monitor for withdrawal symptoms Noted with runs of V. tach. 5/10 and HR in 50s. Continue beta-raymon per Cardiology Status post emergent cardiac catheterization with stent placement by Dr. Farrar Continue aspirin, Plavix, carvedilol, lisinopril, atorvastatin Lipid panel reviewed Start with the patient is refusing any medications. Not in withdrawals at this time. The patient is counselled extensively regarding tobacco use and alcohol use he expressed understanding. = Discussed with cardiology. Patient cleared by cardiology for discharge. Continue aspirin, Plavix, statin, lisinopril, Coreg. I impressed on patient the importance of these medications. Patient conveys understanding.. //CK elevation to 1100. Patient without any muscle pain. Likely post cath release of CK. Follow-up with primary care. pt conveys understanding. //Leukocytosis. Likely stress related. No signs of infection. Follow-up with primary care. Discharge plan: Discharge when cleared by cardiology. Discharge Planning Discharge home in good condition. Continue heart healthy diet. Activity ad oscar. Please see discharge medication reconciliation for medication list. Follow-up with cardiology and primary care as outpatient. Kain Anthony MD January 03, 2018 18:36
== END 2018-01-03 18:39 | disposition home or self-care (01) | DRG 249 ==
LOC: PHED 00:43 → PHEDA 00:57 → HCVI 03:12 → HCPC 18:30
PROVIDERS: ADMIT Internal Medicine; ATTEND Internal Medicine
PROC: 02703FZ Dilation of Coronary Artery, One Artery with Three Intraluminal Devices, Percutaneous Approach (ICD-10-PCS; principal; 2018-01-02)
PROC: 02C03ZZ Extirpation of Matter from Coronary Artery, One Artery, Percutaneous Approach (ICD-10-PCS; 2018-01-02)
PROC: 4A023N7 Measurement of Cardiac Sampling and Pressure, Left Heart, Percutaneous Approach (ICD-10-PCS; 2018-01-02)
PROC: B2151ZZ Fluoroscopy of Left Heart using Low Osmolar Contrast (ICD-10-PCS; 2018-01-02)
PROC: B2111ZZ Fluoroscopy of Multiple Coronary Arteries using Low Osmolar Contrast (ICD-10-PCS; 2018-01-02)
DX: I21.19 ST elevation (STEMI) myocardial infarction involving other coronary artery of inferior wall (principal); I10 Essential (primary) hypertension; I25.119 Atherosclerotic heart disease of native coronary artery with unspecified angina pectoris; F17.200 Nicotine dependence, unspecified, uncomplicated; I25.5 Ischemic cardiomyopathy; I16.0 Hypertensive urgency; Z91.14 Patient's other noncompliance with medication regimen
CPT/HCPCS: 80048; 80053; 80061; 82550; 82552; 84484; 85002; 85025; 85610; 85730; 92941; 93005; 93458; 99152; 99153; C1725; C1757; C1760; C1769; C1876; C1887; C1893; G0269; J0461; J1644; J2250; J2270; J3010; Q9967